=== PATIENT | male | born 1985 | race American Indian/Alaskan Native ===

== ENCOUNTER 2021-02-20 07:56 | Emergency (ER) | payer BC ==
[2021-02-20 09:47] VITALS: BP 143/97
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
== END 2021-02-20 10:03 | disposition home or self-care (01) ==
LOC: ED 07:56
DX: S59.911A Unspecified injury of right forearm, initial encounter (principal); Z88.2 Allergy status to sulfonamides; W20.8XXA Other cause of strike by thrown, projected or falling object, initial encounter; Y93.89 Activity, other specified; Y92.89 Other specified places as the place of occurrence of the external cause; Y99.8 Other external cause status
CPT/HCPCS: 99282

== ENCOUNTER 2022-01-04 08:21 | Emergency (ER) | payer SELFPAY ==
[2022-01-04] MEDS ORDERED: dexAMETHasone 4 MG/ML VIAL PO ONE (12:13)
[2022-01-04] MEDS ORDERED: KETOROLAC 10 MG TAB PO ONE (12:13)
[2022-01-04] MEDS ORDERED: AMOXICILLIN/K CLAV 875/125MG TAB PO ONE (12:14)
--- NOTE | 2022-01-04 12:36 | Emergency Department Report ---
ED ENT HPI - General Chief complaint: Fever Stated complaint: FEVER/CHILLS/NO APPETITE Time Seen by Provider: 01/04/22 11:46 Source: patient Mode of arrival: Ambulatory Limitations: No Limitations - History of Present Illness Initial comments: 36-year-old black male with no past medical history presents to the emergency department for evaluation of 3-day history of fever, chills, headache, cough, congestion, and sore throat. He denies shortness of breath and sick contacts. States that he has been taking [id number] sinus medication and ibuprofen for the pain and congestion with only minimal improvement. He states that headache at its worst is 7 out of 10. MD complaint: sore throat, other (Cough, fever, congestion, headache, and chills) -: Gradual, days(s) (3) Location: throat, other (Headache) Severity: moderate Severity scale (0 -10): 7 Quality: aching Consistency: constant Improves with: NSAID, other (Sinus medication) Associated Symptoms: fever, cough, pain with swallowing, sore throat, rhinorrhea. denies: gum swelling, toothache, tinnitus, hearing loss, discharge from ear - Related Data Previous Rx's Medication Instructions Recorded Last Taken Type Ibuprofen [Motrin 800 MG tab] 800 mg PO Q8HR PRN #15 tablet 02/20/21 Unknown Rx Amoxicillin/K Clav Tab [Augmentin 1 tab PO BID 5 Days #10 tab 01/04/22 Unknown Rx 875 mg] Benzonatate [Tessalon Perles] 100 mg PO Q8HR PRN #30 cap 01/04/22 Unknown Rx methylPREDNISolone [Medrol 4MG 4 mg PO DAILY #1 pack 01/04/22 Unknown Rx DOSEPAK (21 tabs)] Allergies Allergy/AdvReac Type Severity Reaction Status Date / Time Sulfa (Sulfonamide Allergy Unknown Verified 02/20/18 17:13 Antibiotics) ED Dental HPI - General Chief complaint: Fever Stated complaint: FEVER/CHILLS/NO APPETITE Time Seen by Provider: 01/04/22 11:46 Source: patient Mode of arrival: Ambulatory Limitations: No Limitations - Related Data Previous Rx's Medication Instructions Recorded Last Taken Type Ibuprofen [Motrin 800 MG tab] 800 mg PO Q8HR PRN #15 tablet 02/20/21 Unknown Rx Amoxicillin/K Clav Tab [Augmentin 1 tab PO BID 5 Days #10 tab 01/04/22 Unknown Rx 875 mg] Benzonatate [Tessalon Perles] 100 mg PO Q8HR PRN #30 cap 01/04/22 Unknown Rx methylPREDNISolone [Medrol 4MG 4 mg PO DAILY #1 pack 01/04/22 Unknown Rx DOSEPAK (21 tabs)] Allergies Allergy/AdvReac Type Severity Reaction Status Date / Time Sulfa (Sulfonamide Allergy Unknown Verified 02/20/18 17:13 Antibiotics) ED Review of Systems ROS: Stated complaint: FEVER/CHILLS/NO APPETITE Other details as noted in HPI Comment: All other systems reviewed and negative Constitutional: chills, fever. denies: diaphoresis, malaise, weakness Eyes: denies: eye pain, eye discharge, vision change ENT: throat pain, congestion Respiratory: cough. denies: shortness of breath, SOB with exertion, SOB at rest, stridor, wheezing Cardiovascular: denies: chest pain, palpitations, dyspnea on exertion, orthopnea, edema, syncope, paroxysmal nocturnal dyspnea Gastrointestinal: denies: abdominal pain, nausea, vomiting, diarrhea, hematemesis, melena, hematochezia Genitourinary: denies: urgency, dysuria Musculoskeletal: denies: back pain Skin: denies: lesions Neurological: headache. denies: weakness, numbness, paresthesias, confusion, abnormal gait ED Past Medical Hx - Past Medical History Hx Congestive Heart Failure: No Hx Diabetes: No Hx Asthma: No Hx COPD: No - Surgical History Past Surgical History?: No - Social History Smoking Status: Never Smoker - Medications Home Medications: Home Medications Medication Instructions Recorded Confirmed Last Taken Type Ibuprofen [Motrin 800 MG tab] 800 mg PO Q8HR PRN #15 tablet 02/20/21 Unknown Rx Amoxicillin/K Clav Tab [Augmentin 1 tab PO BID 5 Days #10 tab 01/04/22 Unknown Rx 875 mg] Benzonatate [Tessalon Perles] 100 mg PO Q8HR PRN #30 cap 01/04/22 Unknown Rx methylPREDNISolone [Medrol 4MG 4 mg PO DAILY #1 pack 01/04/22 Unknown Rx DOSEPAK (21 tabs)] ED Physical Exam - General Limitations: No Limitations General appearance: alert, in no apparent distress - Head Head exam: Present: atraumatic, normocephalic - Eye Eye exam: Present: normal appearance. Absent: scleral icterus, conjunctival injection, periorbital swelling, periorbital tenderness - ENT ENT exam: Absent: normal exam (Bilateral nasal mucosal edema, bilateral turbinate swelling with purulent drainage noted), normal orophraynx (Erythema noted to posterior oropharynx) - Expanded ENT Exam Expanded Mouth exam: Present: normal external inspection Throat exam: Negative: tonsillar erythema, tonsillomegaly, tonsillar exudate, R peritonsillar mass, L peritonsillar mass - Neck Neck exam: Present: normal inspection, full ROM, lymphadenopathy. Absent: tenderness, meningismus, thyromegaly - Respiratory Respiratory exam: Present: normal lung sounds bilaterally. Absent: respiratory distress, wheezes, rales, rhonchi, stridor, chest wall tenderness - Cardiovascular Cardiovascular Exam: Present: tachycardia, normal heart sounds - GI/Abdominal GI/Abdominal exam: Present: soft, normal bowel sounds. Absent: distended, tenderness, guarding, rebound, rigid - Extremities Exam Extremities exam: Present: normal inspection, full ROM, normal capillary refill. Absent: tenderness, pedal edema, joint swelling, calf tenderness - Back Exam Back exam: Present: normal inspection. Absent: CVA tenderness (R), CVA tenderness (L) - Neurological Exam Neurological exam: Present: alert, oriented X3, CN II-XII intact, normal gait, reflexes normal. Absent: motor sensory deficit - Psychiatric Psychiatric exam: Present: normal affect, normal mood - Skin Skin exam: Present: warm, dry, intact, normal color ED Course Vital Signs 01/04/22 08:32 Temperature 99.3 F Pulse Rate 107 H Respiratory 14 Rate Blood Pressure 145/84 O2 Sat by Pulse 96 Oximetry ED Medical Decision Making - Medical Decision Making 36-year-old black male with no past medical history presents to the emergency department for evaluation of 3-day history of fever, chills, headache, cough, congestion, and sore throat. He denies shortness of breath and sick contacts. States that he has been taking [id number] sinus medication and ibuprofen for the pain and congestion with only minimal improvement. He states that headache at its worst is 7 out of 10. Physical exam consistent with acute bacterial rhinosinusitis. Patient will be treated with 7-day course of Augmentin along with Medrol Dosepak and Tessalon Perles to use as directed. He is advised to follow-up with his primary care provider if no improvement or worsening symptoms. He verbalizes understanding of and agreement with plan of care. Critical care attestation.: If time is entered above; I have spent that time in minutes in the direct care of this critically ill patient, excluding procedure time. ED Disposition Clinical Impression: Acute bacterial rhinosinusitis Disposition: HOME / SELF CARE / HOMELESS Is pt being admited?: No Does the pt Need Aspirin: No Condition: Stable Instructions: Sinusitis, Adult, [id number], How to Perform a Sinus Rinse, [id number], Antibiotic Medicine, Adult, [id number]-[id number] Additional Instructions: Take medications as prescribed. Follow-up with your primary care provider if no improvement or worsening symptoms. Return to the emergency department as needed. Prescriptions: Amoxicillin/K Clav Tab [Augmentin 875 mg] 1 tab PO BID 5 Days #10 tab methylPREDNISolone [Medrol 4MG DOSEPAK (21 tabs)] 4 mg PO DAILY #1 pack Benzonatate [Tessalon Perles] 100 mg PO Q8HR PRN #30 cap PRN Reason: Cough Referrals: LINDA COONEY MD [Staff Physician] - 3-5 Days Forms: Work/School Release Form(ED) Time of Disposition: 12:40
[2022-01-04 13:43] VITALS: BP 149/96
== END 2022-01-04 13:42 | disposition home or self-care (01) ==
LOC: ED 08:21
DX: J01.90 Acute sinusitis, unspecified (principal); Z88.2 Allergy status to sulfonamides
CPT/HCPCS: 99282; J1100